=== PATIENT | female | born 1995 | race Caucasian/White ===

== ENCOUNTER 2021-01-05 11:19 | Outpatient (CLI) | payer OTHER ==
[2021-01-05] MEDS ORDERED: INTEGRA CAPSUL1 EACH PO (12:33)
[2021-01-05] MEDS ORDERED: ATABEX DHA 200200 MG PO (12:33)
[2021-01-05] MEDS ORDERED: NIFEDIPINE20 MG PO (14:58)
== END 2021-01-05 17:00 | disposition home or self-care (01) ==
LOC: OBS/DEL 11:19
PROVIDERS: ATTEND Specialist
DX: O26.892 Other specified pregnancy related conditions, second trimester (principal); R10.2 Pelvic and perineal pain; Z3A.21 21 weeks gestation of pregnancy

== ENCOUNTER 2021-02-21 00:41 | Inpatient (IN) | payer OTHER ==
[~2021-02-21] VITALS: Ht 154.9 cm; Wt 59.4 kg
[~2021-02-21 00:41] MED LIST: ATABEX DHA 200200 MG PO; INTEGRA CAPSUL1 EACH PO; NIFEDIPINE20 MG PO
== END 2021-02-21 14:27 | disposition home or self-care (01) | DRG 833 ==
LOC: LDR 00:41
PROVIDERS: ADMIT Specialist; ATTEND Specialist
DX: O99.891 Other specified diseases and conditions complicating pregnancy (principal); R10.13 Epigastric pain; Z20.822 Contact with and (suspected) exposure to COVID-19

== ENCOUNTER 2021-04-01 19:47 | Outpatient (CLI) | payer OTHER ==
[2021-04-01] MEDS ORDERED: PROCARDIA PO (20:25)
== END 2021-04-02 12:59 | disposition home or self-care (01) ==
LOC: OBS/DEL 19:47
PROVIDERS: ATTEND Specialist
DX: O36.8130 Decreased fetal movements, third trimester, not applicable or unspecified (principal); Z3A.34 34 weeks gestation of pregnancy

== ENCOUNTER 2021-04-27 07:32 | Inpatient (IN) | payer OTHER ==
[~2021-04-27] VITALS: Ht 152.4 cm; Wt 2.7 kg
[~2021-04-27 07:32] MED LIST changes: +PROCARDIA PO
== END 2021-04-30 16:29 | disposition home or self-care (01) | DRG 788 ==
LOC: LDR 07:32 → OB/GYN 07:32 → O/R 13:50 → OB/GYN 14:59
PROVIDERS: ADMIT Specialist; ATTEND Specialist
PROC: 4A1HXFZ Monitoring of Products of Conception, Cardiac Rhythm, External Approach (ICD-10-PCS; 2021-04-27)
PROC: 10D00Z1 Extraction of Products of Conception, Low, Open Approach (ICD-10-PCS; principal; 2021-04-27 14:15)
DX: O82 Encounter for cesarean delivery without indication (principal); Z37.0 Single live birth; Z3A.37 37 weeks gestation of pregnancy; Z20.822 Contact with and (suspected) exposure to COVID-19